=== PATIENT | female | born 1975 | race Caucasian/White ===

== ENCOUNTER → 2024-01-11 06:35 | Outpatient (REF) | payer BC, SELFPAY | LOC: WDC 06:35 | PROVIDERS: ATTENDING PHYSICIAN Surgery; FAMILY PHYSICIAN Family Medicine | DX: Z12.31 Encounter for screening mammogram for malignant neoplasm of breast (principal); R92.30 Dense breasts, unspecified; Z91.89 Other specified personal risk factors, not elsewhere classified | CPT/HCPCS: 77063; 77067 ==

== ENCOUNTER → 2024-04-23 14:42 | Outpatient (REF) | payer BC, SELFPAY | LOC: WDC 14:42 | PROVIDERS: ATTENDING PHYSICIAN Surgery; FAMILY PHYSICIAN Family Medicine | DX: R92.2 Inconclusive mammogram (principal) | CPT/HCPCS: 76641 ==

== ENCOUNTER → 2025-01-08 07:05 | Outpatient (REF) | payer BC, SELFPAY | LOC: WDC 07:05 | PROVIDERS: ATTENDING PHYSICIAN Surgery; FAMILY PHYSICIAN Family Medicine | DX: Z12.31 Encounter for screening mammogram for malignant neoplasm of breast (principal); R92.2 Inconclusive mammogram; Z80.3 Family history of malignant neoplasm of breast | CPT/HCPCS: 77063; 77067 ==